=== PATIENT | male | born 1990 | race Caucasian/White ===

== ENCOUNTER 2019-01-21 07:04 | Emergency (ER) | payer OTHER ==
--- NOTE | 2019-01-21 07:13 | EDM.PDOC ---
ED HPI GENERAL MEDICAL PROBLEM - General Chief Complaint: Lower Extremity Injury/Pain Stated Complaint: TOE ON LT FOOT HURTS Time Seen by Provider: 01/21/19 07:13 Source of Information: Reports: Patient - History of Present Illness INITIAL COMMENTS - FREE TEXT/NARRATIVE: HISTORY AND PHYSICAL: History of present illness: [Patient presents with an infection on his left great toe, it seems to stem from ingrown toenails, he has had some discharged today after standing on his foot he [facility] also [facility] he has tried trimming his toenails however believe ultimately he'll need an excision medial and lateral with podiatry We'll start him on antibiotics today] Melani recommend Epsom soaks 2-3 times daily follow-up with podiatry on Wednesday No fever nausea vomiting chills sweats Review of systems: As per history of present illness and below otherwise all systems reviewed and negative. Past medical history: As per history of present illness and as reviewed below otherwise noncontributory. Surgical history: As per history of present illness and as reviewed below otherwise noncontributory. Social history: No reported history of drug or alcohol abuse. Family history: As per history of present illness and as reviewed below otherwise noncontributory. Physical exam: HEENT: Atraumatic, normocephalic, pupils reactive, negative for conjunctival pallor or scleral icterus, mucous membranes moist, throat clear, neck supple, nontender, trachea midline. Lungs: Clear to auscultation, breath sounds equal bilaterally, chest nontender. Heart: S1S2, regular, negative for clicks, rubs, or JVD. Abdomen: Soft, nondistended, nontender. Negative for masses or hepatosplenomegaly. Negative for costovertebral tenderness. Pelvis: Stable nontender. Genitourinary: Deferred. Rectal: Deferred. Extremities: Atraumatic, negative for cords or calf pain. Neurovascular unremarkable. Neuro: Awake, alert, oriented. Cranial nerves II through XII unremarkable. Cerebellum unremarkable. Motor and sensory unremarkable throughout. Exam nonfocal. Diagnostics: x-ray left foot 2 views thereputtics: Keflex Epsom salt soaks Return if symptoms persist or worsen Follow-up with podiatry for consideration of partial excision left great toenail [] Impression: [ ingrown toenails with cellulitis left great toe ] Definitive disposition and diagnosis as appropriate pending reevaluation and review of above. left great toe Pain Score (Numeric/FACES): 6 - Related Data Allergies Allergy/AdvReac Type Severity Reaction Status Date / Time cefaclor [From Ceclor] Allergy Rash Verified 01/21/19 07:25 ibuprofen Allergy Nausea and Verified 01/21/19 07:25 Vomiting Home Meds: Home Meds Depression Medication 1 tab PO DAILY 01/21/19 [History] Review of Systems - Review of Systems Review Of Systems: See Below ED EXAM, GENERAL - Physical Exam Exam: See Below Course - Vital Signs Last Recorded V/S: Last Vital Signs Temp 95.7 F 01/21/19 07:22 Pulse 80 01/21/19 07:22 Resp 18 01/21/19 07:22 BP 107/75 01/21/19 07:22 Pulse Ox 97 01/21/19 07:22 - Orders/Labs/Meds Orders: Active Orders 24 hr Category Date Time Status Foot 2V Lt [CR] Stat Exams 01/21/19 07:14 Ordered Departure - Departure Time of Disposition: 07:31 Disposition: Home, Self-Care 01 Condition: Good Clinical Impression: Ingrown left big toenail - Discharge Information Referrals: PCP,None [Primary Care Provider] - Forms: ED Department Discharge Additional Instructions: Medication as prescribed Return if symptoms persist or worsen Follow-up w podiatry on Wednesday [facility] [address] [place] [id number] Martin Rodrigues, DPM [address] [place] [address] [address] [place] [id number] The following information is given to patients seen in the emergency department who are being discharged to home. This information is to outline your options for follow-up care. We provide all patients seen in our emergency department with a follow-up referral. The need for follow-up, as well as the timing and circumstances, are variable depending upon the specifics of your emergency department visit. If you don't have a primary care physician on staff, we will provide you with a referral. We always advise you to contact your personal physician following an emergency department visit to inform them of the circumstance of the visit and for follow-up with them and/or the need for any referrals to a consulting specialist. The emergency department will also refer you to a specialist when appropriate. This referral assures that you have the opportunity for follow-up care with a specialist. All of these measure are taken in an effort to provide you with optimal care, which includes your follow-up. Under all circumstances we always encourage you to contact your private physician who remains a resource for coordinating your care. When calling for follow-up care, please make the office aware that this follow-up is from your recent emergency room visit. If for any reason you are refused follow-up, please contact the [facility] emergency department at and asked to speak to the emergency department charge nurse. - My Orders Last 24 Hours: My Active Orders 01/21/19 07:14 Foot 2V Lt [CR] Stat - Assessment/Plan Last 24 Hours: My Active Orders 01/21/19 07:14 Foot 2V Lt [CR] Stat
--- NOTE | 2019-01-21 07:52 | CR ---
INDICATION: Pain and swelling in the great toe. TECHNIQUE: Two views left foot. FINDINGS: Minimal degenerative change in the left mid foot. No acute fracture or dislocation in left foot. Moderate soft tissue swelling left great toe. Remainder negative. Dictated by Preet George MD @ Jan 21 2019 7:50AM Signed by Dr. Preet George @ Jan 21 2019 7:51AM
== END 2019-01-21 07:53 | disposition home or self-care (01) ==
LOC: MW.ED 07:04
DX: L60.0 Ingrowing nail (principal); L03.032 Cellulitis of left toe; Z88.6 Allergy status to analgesic agent; Z88.8 Allergy status to other drugs, medicaments and biological substances
CPT/HCPCS: 73620-26-LT; 73620-LT; 99282; 99283-25

== ENCOUNTER 2019-06-16 09:28 | Emergency (ER) | payer OTHER ==
[2019-06-16] MEDS ORDERED: Sodium Chloride 0.9% 10 ML Syringe FLUSH PRN (09:53)
[2019-06-16] MEDS ORDERED: Sodium Chloride 0.9% 2.5 ML Syringe FLUSH PRN ×2 (09:53)
[2019-06-16] MEDS ORDERED: Sodium Chloride 0.9% 1,000 ML IV ONE ×2 (09:53→09:54)
--- NOTE | 2019-06-16 10:00 | EDM.PDOC ---
<Angel Cartwright - Last Filed: 06/16/19 12:15> ED HPI GENERAL MEDICAL PROBLEM - General Chief Complaint: Abdominal Pain Stated Complaint: ABDOMINAL PAIN Time Seen by Provider: 06/16/19 09:31 Source of Information: Reports: Patient History Limitations: Reports: No Limitations - History of Present Illness INITIAL COMMENTS - FREE TEXT/NARRATIVE: HISTORY AND PHYSICAL: History of present illness: 29-year-old male presents today complaining of left lower quadrant abdominal pain which started 1 day ago. He reports the pain has been getting worse is aggravated by sudden positional changes and also eating at times. Describes the pain as being sharp and burning in nature. The pain is constant in nature and will have flare-ups in intensity. There is no radiation of pain and that is rated as 8/10 on pain scale. Patient also reports having approximately 8 bowel movements since yesterday evening but has not had diarrhea. He denies having any fevers, chills, shortness of breath, chest pain, nausea, vomiting, blood in stool, blood in urine or numbness and tingling in extremities. Review of systems: As per history of present illness and below otherwise all systems reviewed and negative. Past medical history: As per history of present illness and as reviewed below otherwise noncontributory. Surgical history: As per history of present illness and as reviewed below otherwise noncontributory. Social history: No reported history of drug or alcohol abuse. Family history: As per history of present illness and as reviewed below otherwise noncontributory. Physical exam: HEENT: Atraumatic, normocephalic, pupils reactive, negative for conjunctival pallor or scleral icterus, mucous membranes moist, throat clear, neck supple, nontender, trachea midline. Lungs: Clear to auscultation. Heart: S1S2, regular. Abdomen: Soft, nondistended, left lower quadrant and suprapubic region tender to palpation. Normal bowel sounds. Rovsing's sign negative. Mathew's sign negative. No rebound tenderness. Negative for costovertebral tenderness. Pelvis: Deferred. Genitourinary: Deferred. Rectal: Deferred. Extremities: No lower extremity edema. Neuro: Awake, alert, oriented. Cranial nerves II through XII unremarkable. Motor and sensory unremarkable throughout. Exam nonfocal. Diagnostics: CBC, CMP, lipase and UA unremarkable. CT abd/pelvis Therapeutics: IV fluids Plan: Patient care transferred to ER provider Dr. Enciso at 12:05 pm. Definitive disposition and diagnosis as appropriate pending reevaluation and review of above. 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 Cardiovascular History: Reports: None Respiratory History: Reports: None Gastrointestinal History: Reports: None Genitourinary History: Reports: None Musculoskeletal History: Reports: None Neurological History: Reports: None Psychiatric History: Reports: None Endocrine/Metabolic History: Reports: None Hematologic History: Reports: None Immunologic History: Reports: None Oncologic (Cancer) History: Reports: None Dermatologic History: Reports: None - Infectious Disease History Infectious Disease History: Reports: None - Past Surgical History Head Surgeries/Procedures: Reports: None HEENT Surgical History: Reports: None Cardiovascular Surgical History: Reports: None Respiratory Surgical History: Reports: None GI Surgical History: Reports: Hernia, Inguinal Male Surgical History: Reports: None Endocrine Surgical History: Reports: None Neurological Surgical History: Reports: None Musculoskeletal Surgical History: Reports: None Oncologic Surgical History: Reports: None Dermatological Surgical History: Reports: None Social & Family History - Family History Family Medical History: Noncontributory - Caffeine Use Caffeine Use: Reports: Coffee - Recreational Drug Use Recreational Drug Use: No Course - Vital Signs Last Recorded V/S: Last Vital Signs Temp 97.3 F 06/16/19 09:35 Pulse 91 06/16/19 09:35 Resp 18 06/16/19 09:35 BP 128/91 H 06/16/19 09:35 Pulse Ox 98 06/16/19 09:35 - Orders/Labs/Meds Orders: Active Orders 24 hr Category Date Time Status Sodium Chloride 0.9% [Saline Flush] Med 06/16/19 09:53 Active 10 ml FLUSH ASDIRECTED PRN Sodium Chloride 0.9% [Saline Flush] Med 06/16/19 09:53 Active 2.5 ml FLUSH ASDIRECTED PRN Sodium Chloride 0.9% [Saline Flush] Med 06/16/19 09:53 Active 2.5 ml FLUSH ASDIRECTED PRN Saline Lock Insert [OM.PC] Stat Oth 06/16/19 09:53 Ordered Medication Orders Sodium Chloride (Saline Flush) 2.5 ml FLUSH ASDIRECTED PRN PRN Reason: Keep Vein Open Sodium Chloride (Saline Flush) 10 ml FLUSH ASDIRECTED PRN PRN Reason: Keep Vein Open Sodium Chloride (Saline Flush) 2.5 ml FLUSH ASDIRECTED PRN PRN Reason: Keep Vein Open Labs: Laboratory Tests 06/16/19 06/16/19 06/16/19 Range/Units 09:43 10:10 10:10 WBC 9.22 (4.0-11.0) K/uL RBC 5.23 (4.50-5.90) M/uL Hgb 15.2 (13.0-17.0) g/dL Hct 44.9 (38.0-50.0) % MCV 85.9 (80.0-98.0) fL MCH 29.1 (27.0-32.0) pg MCHC 33.9 (31.0-37.0) g/dL RDW Std Deviation 39.9 (28.0-62.0) fl RDW Coeff of Ines 13 (11.0-15.0) % Plt Count 262 (150-400) K/uL MPV 9.50 (7.40-12.00) fL Neut % (Auto) 64.7 (48.0-80.0) % Lymph % (Auto) 23.2 (16.0-40.0) % [place] % (Auto) 9.5 (0.0-15.0) % Eos % (Auto) 2.4 (0.0-7.0) % Baso % (Auto) 0.2 (0.0-1.5) % Neut # (Auto) 6.0 H (1.4-5.7) K/uL Lymph # (Auto) 2.1 (0.6-2.4) K/uL [place] # (Auto) 0.9 H (0.0-0.8) K/uL Eos # (Auto) 0.2 (0.0-0.7) K/uL Baso # (Auto) 0.0 (0.0-0.1) K/uL Nucleated RBC % 0.0 /100WBC Nucleated RBCs # 0 K/uL Sodium 140 (136-148) mmol/L Potassium 3.6 (3.5-5.1) mmol/L Chloride 106 (98-107) mmol/L Carbon Dioxide 25.0 (21.0-32.0) mmol/L BUN 12 (7.0-18.0) mg/dL Creatinine 1.0 (0.8-1.3) mg/dL Est Cr Clr Drug Dosing 120.71 mL/min Estimated GFR (MDRD) > 60.0 ml/min Glucose 100 (74-106) mg/dL Calcium 8.9 (8.5-10.1) mg/dL Total Bilirubin 0.4 (0.2-1.0) mg/dL AST 19 (15-37) IU/L ALT 25 (14-63) IU/L Alkaline Phosphatase 78 (46-116) U/L Total Protein 7.6 (6.4-8.2) g/dL Albumin 4.1 (3.4-5.0) g/dL Globulin 3.5 (2.6-4.0) g/dL Albumin/Globulin Ratio 1.2 (0.9-1.6) Lipase 125 (73-393) U/L Urine Color YELLOW Urine Appearance CLEAR Urine pH 6.5 (5.0-8.0) Ur Specific [place] <= 1.005 (1.001-1.035) Urine Protein NEGATIVE (NEGATIVE) mg/dL Urine Glucose (UA) NEGATIVE (NEGATIVE) mg/dL Urine Ketones NEGATIVE (NEGATIVE) mg/dL Urine Occult Blood NEGATIVE (NEGATIVE) Urine Nitrite NEGATIVE (NEGATIVE) Urine Bilirubin NEGATIVE (NEGATIVE) Urine Urobilinogen 0.2 (<2.0) EU/dL Ur Leukocyte Esterase NEGATIVE (NEGATIVE) Meds: Medications Generic Name Dose Route Start Last Admin Trade Name Freq PRN Reason Stop Dose Admin Sodium Chloride 2.5 ml 06/16/19 09:53 Saline Flush FLUSH ASDIRECTED PRN Keep Vein Open Sodium Chloride 10 ml 06/16/19 09:53 Saline Flush FLUSH ASDIRECTED PRN Keep Vein Open Sodium Chloride 2.5 ml 06/16/19 09:53 Saline Flush FLUSH ASDIRECTED PRN Keep Vein Open Discontinued Medications Generic Name Dose Route Start Last Admin Trade Name Brianq PRN Reason Stop Dose Admin Sodium Chloride 1,000 mls @ 999 mls/hr 06/16/19 09:53 06/16/19 10:21 Normal Saline IV 06/16/19 10:53 999 mls/hr BOLUS ONE Administration Sodium Chloride 1,000 mls @ 999 mls/hr 06/16/19 09:54 06/16/19 10:41 Normal Saline IV 06/16/19 10:54 Not Given STAT ONE Iopamidol 100 ml 06/16/19 11:29 06/16/19 11:29 Isovue Multipack-370 (76%) IVPUSH 06/16/19 11:30 100 ml ONETIME ONE Administration Departure - Departure Disposition: Home, Self-Care 01 Clinical Impression: Diverticulitis - Discharge Information Prescriptions: Ciprofloxacin HCl [Cipro] 500 mg PO BID #20 tablet metroNIDAZOLE [Flagyl] 500 mg PO Q8H #30 tab traMADol HCl [Tramadol HCl] 50 mg PO Q6H PRN #16 tablet PRN Reason: Pain Referrals: PCP,Not In Area [Primary Care Provider] - Forms: ED Department Discharge Additional Instructions: The following information is given to patients seen in the emergency department who are being discharged to home. This information is to outline your options for follow-up care. We provide all patients seen in our emergency department with a follow-up referral. The need for follow-up, as well as the timing and circumstances, are variable depending upon the specifics of your emergency department visit. If you don't have a primary care physician on staff, we will provide you with a referral. We always advise you to contact your personal physician following an emergency department visit to inform them of the circumstance of the visit and for follow-up with them and/or the need for any referrals to a consulting specialist. The emergency department will also refer you to a specialist when appropriate. This referral assures that you have the opportunity for follow-up care with a specialist. All of these measure are taken in an effort to provide you with optimal care, which includes your follow-up. Under all circumstances we always encourage you to contact your private physician who remains a resource for coordinating your care. When calling for follow-up care, please make the office aware that this follow-up is from your recent emergency room visit. If for any reason you are refused follow-up, please contact the [facility] Emergency Department at and asked to speak to the emergency department charge nurse. Take meds as directed, follow up with your primary care physician, return to ER if symptoms worsen or change. [facility] [address] [place] [id number] <Grace Enciso - Last Filed: 06/16/19 12:26> ED HPI GENERAL MEDICAL PROBLEM - History of Present Illness INITIAL COMMENTS - FREE TEXT/NARRATIVE: Patient's CT scan shows diverticulitis without perforation or abscess. Patient is tolerating by mouth's and has no vomiting. He is being discharged with a prescription for tramadol, Cipro and Flagyl. Told to follow up with primary care or to return to ER if symptoms worsen or change. ED ROS GENERAL - Review of Systems Review Of Systems: See Below ED EXAM, GI/ABD - Physical Exam Exam: See Below Departure - Departure Time of Disposition: 12:26 Condition: Good - Discharge Information *PRESCRIPTION DRUG MONITORING PROGRAM REVIEWED*: No *COPY OF PRESCRIPTION DRUG MONITORING REPORT IN PATIENT HO: No
[2019-06-16 10:56] LABS: BLOOD UREA NITROGEN,BUN 12 mg/dL (7.0-18.0); CHLORIDE,CL 106 mmol/L (98-107); GLUCOSE RANDOM 100 mg/dL (74-106); LIPASE 125 U/L (73-393); POTASSIUM,K 3.6 mmol/L (3.5-5.1); SODIUM,NA 140 mmol/L (136-148)
[2019-06-16] MEDS ORDERED: Iopamidol 755 MG/ML 500 ML Multipack Bottle IVPUSH ONE (11:29)
--- NOTE | 2019-06-16 12:13 | CT ---
CT abdomen and pelvis Technique: Multiple axial sections were obtained from above the dome of the diaphragm inferiorly through the pubic symphysis. Intravenous contrast was utilized. No oral contrast has been given. Comparison: No prior abdominal imaging is available. Findings: Visualized lung bases show nothing acute. Enhancing lesion is noted within the right lobe of the liver. This finding measures approximately 3.2 cm in size. Enhancement is somewhat clumped around the periphery and finding is felt compatible with hemangioma. No additional liver abnormality is seen. Spleen appears within normal limits. Adrenal glands show no nodule. Kidneys show symmetric contrast enhancement without hydronephrosis or mass. Pancreas appears within normal limits. Gallbladder is collapsed with no calcified gallstones being seen. Aorta shows no aneurysm. No retroperitoneal adenopathy or mesenteric abnormalities are seen. No pelvic mass or adenopathy is seen. Mild inflammatory change is seen around a portion of the colon near the descending and sigmoid junction. There are several diverticuli in this area and findings most likely due to diverticulitis. Minimal fluid is seen within the dependent pelvis most likely reactive from the colonic process. Bone window settings were reviewed which appear within normal limits for the patient's age. Impression: 1. Mild inflammatory change around the colon near the junction of the sigmoid and descending colon. Findings most likely due to mild diverticulitis. 2. Small amount of fluid within the deep dependent pelvis most likely reactive from the diverticulitis. 3. Liver lesion believed to represent hemangioma measuring approximately 3.2 cm. Diagnostic code #3 MTDD
== END 2019-06-16 12:51 | disposition home or self-care (01) ==
LOC: MW.ED 09:28
DX: K57.32 Diverticulitis of large intestine without perforation or abscess without bleeding (principal); Z88.8 Allergy status to other drugs, medicaments and biological substances; Z88.1 Allergy status to other antibiotic agents
CPT/HCPCS: 36415; 74177; 80053; 81003; 83690; 85025; 96360; 96361; 99284; J7040; Q9967